=== PATIENT | male | born 1965 | race Caucasian/White ===

== ENCOUNTER 2017-04-15 09:49 | Emergency (ER) | payer OTHER ==
[~2017-04-15] VITALS: Ht 185.4 cm; Wt 100.4 kg
[2017-04-15 09:57] VITALS: TEMP 37.8; Ht 185.4 cm; Wt 100.4 kg
[2017-04-15] MEDS ORDERED: FLUT0.15 NAE (10:28)
[2017-04-15 10:52] LABS: BASO % 0.4 %; BASO ABS # 0.02 K/uL (0-0.2); COMPLETE YES; EOS % 1.3 %; HEMATOCRIT 43.9 % (42-52); IG% 0.2 %; LYMPH % 26.3 %; LYMPH ABS # 1.39 K/uL (1.2-3.4); MEAN CELL VOLUME 89.4 fL (80-100); MEAN CORPUSCULAR HEMOGLOBIN 30.3 pg (25-34); MEAN CORPUSCULAR HGB CONC 33.9 g/dl (32-36); MONO % 8.3 %; NEUT % 63.5 %; PLATELET COUNT 245 K/uL (130-400); RED BLOOD COUNT 4.91 M/uL (4.7-6.1); WHITE BLOOD COUNT 5.28 K/uL (4.8-10.8)
[2017-04-15 11:01] LABS: BLOOD UREA NITROGEN 16 mg/dl (7-18); BUN/CREATININE RATIO 15.6 (10-20); CALCIUM 8.5 mg/dl (8.5-10.1); CARBON DIOXIDE 32 mmol/L (21-32); CHLORIDE 103 mmol/L (98-107); GLUCOSE 121 mg/dl (70-99); POTASSIUM 4.2 mmol/L (3.5-5.1); SODIUM 138 mmol/L (136-145)
[2017-04-15] MEDS ORDERED: ASPIRIN 81 MG CHEW PO STA (11:03)
--- NOTE | 2017-04-15 11:05 | DIAGNOSTIC IMAGING REPORT ---
CHEST ONE VIEW PORTABLE HISTORY: Atypical Chest Pain COMPARISON: None. FINDINGS: The lungs are clear. Cardiac silhouette is normal in size. No pleural effusions. No pneumothorax. IMPRESSION: No acute process. Electronically signed by: Oleg Bates M.D. 04/15/2017 11:04 AM Dictated Date/Time: 04/15/2017 11:03 AM
[2017-04-15 11:07] LABS: CKMB/CK RATIO 0.6 (0-3.0)
[2017-04-15 11:15] VITALS: O2SAT 97
[2017-04-15 11:36] LABS: THYROID STIMULATING HORMONE 0.867 uIu/ml (0.300-4.500)
[2017-04-15 13:50] VITALS: BP 144/98; PULSE 67; O2SAT 97
--- NOTE | 2017-04-15 17:08 | EMERGENCY ROOM VISIT NOTE ---
History Report prepared by Harsha: Shaneka Whitmore Under the Supervision of: Dr. Asael Anderson D.O. First contact with patient: 10:18 Chief Complaint: CARDIAC ASSESSMENT Stated Complaint: FLUTTERING/PRESSURE IN CHEST Nursing Triage Summary: Pt reports at 0900 he was sitting at work and developed fluttering in left chest Tightness in left chest and left bicep "it feels like a popping in there sometimes" Pt reports recent sinus congestion History of Present Illness The patient is a 51 year old male who presents to the Emergency Room for a cardiac assessment. The patient was sitting at his desk at work today when he suddenly developed heart palpitations. He states, "It felt like bubbling or popping in my chest." He denies experiencing any chest pains or feeling like his heart was racing. The patient states that he developed some pressure in his chest associate with the palpitations and decided to come to the ED for further evaluation. The pressure lasted for a short time and has resolved; although, he is still experiencing intermittent palpitations. The patient has had some recent cough and cold symptoms but reports that this is due to his seasonal allergies. He denies shortness of breath, jaw pain, abdominal pain, nausea, vomiting, diarrhea, urinary symptoms, leg pain or swelling, any recent surgery, and any recent long trips. He does not have any significant cardiac history. The patient had a negative exercise stress test on 01/17/14. He denies any history of hypertension. 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 A total of 10 systems reviewed and were otherwise negative. Past Medical & Surgical Medical Problems: (1) Bladder cancer Family History FH: cancer FH: heart disease Hypertension Social History Smoking Status: Never Smoker Smokeless Tobacco Use: No Alcohol Use: occasionally Marital Status: in relationship Housing Status: lives with significant other Occupation Status: employed Current/Historical Medications Scheduled PRN Fluticasone Propionate (Nasal) (Flonase Allergy Relief), 1 SPRAYS ZAKIA DAILY PRN for ALLERGIES Allergies Coded Allergies: No Known Allergies (Unverified , 04/15/17) Physical Exam Vital Signs Date Time Temp Pulse Resp B/P Pulse Ox O2 Delivery O2 Flow Rate FiO2 04/15/17 13:50 67 18 144/98 97 04/15/17 13:38 67 18 144/98 97 Room Air 04/15/17 13:16 68 18 143/97 98 Room Air 04/15/17 13:14 67 04/15/17 11:38 66 04/15/17 11:31 71 18 159/102 97 Room Air 04/15/17 11:15 97 Room Air 04/15/17 10:10 79 04/15/17 09:57 98 Room Air 04/15/17 09:57 37.8 83 20 158/89 96 Room Air Physical Exam GENERAL: alert, sitting up in bed, well appearing, well nourished, no distress, non-toxic EYE EXAM: normal conjunctiva OROPHARYNX: no exudate, no erythema, lips, buccal mucosa, and tongue normal and mucous membranes are moist NECK: supple, no nuchal rigidity, no adenopathy, non-tender LUNGS: Clear to auscultation. Normal chest wall mechanics HEART: no murmurs, S1 normal and S2 normal ABDOMEN: abdomen soft, non-tender, normo-active bowel sounds, no masses, no rebound or guarding. BACK: Back is symmetrical on inspection and there is no deformity, no midline tenderness, no CVA tenderness. SKIN: no rashes and no bruising UPPER EXTREMITIES: upper extremities are grossly normal. Radial pulses are equal bilaterally. LOWER EXTREMITIES: No pitting edema. Calves are equal bilaterally. NEURO EXAM: Normal sensorium, cranial nerves II-XII grossly intact, normal speech, no gross weakness of arms, no gross weakness of legs. Medical Decision & Procedures ER Provider Diagnostic Interpretation: Radiology results as stated below per my review and the radiologist's interpretation: CHEST ONE VIEW PORTABLE HISTORY: Atypical Chest Pain COMPARISON: None. FINDINGS: The lungs are clear. Cardiac silhouette is normal in size. No pleural effusions. No pneumothorax. IMPRESSION: No acute process. Electronically signed by: Oleg Bates M.D. 04/15/2017 11:04 AM Dictated Date/Time: 04/15/2017 11:03 AM Laboratory Results 04/15/17 10:05 Red Blood Count 4.91, Mean Corpuscular Volume 89.4, Mean Corpuscular Hemoglobin 30.3, Mean Corpuscular Hemoglobin Concent 33.9, Mean Platelet Volume 9.0, Neutrophils (%) (Auto) 63.5, Lymphocytes (%) (Auto) 26.3, Monocytes (%) (Auto) 8.3, Eosinophils (%) (Auto) 1.3, Basophils (%) (Auto) 0.4, Neutrophils # (Auto) 3.35, Lymphocytes # (Auto) 1.39, Monocytes # (Auto) 0.44, Eosinophils # (Auto) 0.07, Basophils # (Auto) 0.02 04/15/17 10:05 Test 04/15/17 10:05 04/15/17 12:28 04/15/17 12:45 White Blood Count 5.28 K/uL (4.8-10.8) Red Blood Count 4.91 M/uL (4.7-6.1) Hemoglobin 14.9 g/dL (14.0-18.0) Hematocrit 43.9 % (42-52) Mean Corpuscular Volume 89.4 fL (80-100) Mean Corpuscular Hemoglobin 30.3 pg (25-34) Mean Corpuscular Hemoglobin Concent 33.9 g/dl (32-36) Platelet Count 245 K/uL (130-400) Mean Platelet Volume 9.0 fL (7.4-10.4) Neutrophils (%) (Auto) 63.5 % Lymphocytes (%) (Auto) 26.3 % Monocytes (%) (Auto) 8.3 % Eosinophils (%) (Auto) 1.3 % Basophils (%) (Auto) 0.4 % Neutrophils # (Auto) 3.35 K/uL (1.4-6.5) Lymphocytes # (Auto) 1.39 K/uL (1.2-3.4) Monocytes # (Auto) 0.44 K/uL (0.11-0.59) Eosinophils # (Auto) 0.07 K/uL (0-0.5) Basophils # (Auto) 0.02 K/uL (0-0.2) RDW Standard Deviation 42.4 fL (36.4-46.3) RDW Coefficient of Variation 12.9 % (11.5-14.5) Immature Granulocyte % (Auto) 0.2 % Immature Granulocyte # (Auto) 0.01 K/uL (0.00-0.02) D-Dimer < 190 ug/L FEU (0-500) Anion Gap 3.0 mmol/L (3-11) Est Creatinine Clear Calc Drug Dose 111.3 ml/min Estimated GFR () 102.0 Estimated GFR (Non- 88.0 BUN/Creatinine Ratio 15.6 (10-20) Calcium Level 8.5 mg/dl (8.5-10.1) Total Creatine Kinase 240 U/L (39-308) Thyroid Stimulating Hormone (TSH) 0.867 uIu/ml (0.300-4.500) Creatine Kinase MB Ratio (0-3.0) Creatine Kinase MB 1.9 ng/ml (0.5-3.6) Troponin I < 0.015 ng/ml (0-0.045) Laboratory results per my review. Medications Administered Medications (Trade) Dose Ordered Sig/Mira Route Start Time Stop Time Status Last Admin Dose Admin Aspirin (Aspirin Chew) 324 mg NOW STAT PO 04/15/17 11:03 04/15/17 11:04 DC 04/15/17 11:29 324 MG ECG Indication: palpitations Rate (beats per minute): 87 Rhythm: normal sinus Findings: Q waves (Septal), no ectopy, other (normal axis) Comparison ECG Date: 01/02/14 Change: no significant change ED Course ED COURSE: Vital signs were reviewed and showed hypertensive. The patients medical record was reviewed The above diagnostic studies were performed and reviewed. ED treatments and interventions as stated above. 1030: The patient was evaluated in room A10. A complete history and physical examination was performed. 1103: Aspirin 324 mg PO 1215: I reevaluated the patient at this time. He had some palpitations while I was in the room and had PVCs on the monitor. 1328: Upon reevaluation, the patient is feeling better and resting comfortably. I discussed my findings with the patient and he understands and agrees with the treatment plan. Based on the patients age, coexisting illnesses, exam and lab findings the decision to treat as an outpatient was made. The patient remained stable while under my care. The patient appeared well at the time of discharge. Medical Decision Differential diagnoses includes but is not limited to acute coronary syndrome, myocardial infarction, pericarditis, pulmonary embolus, aortic dissection, pneumonia, pneumothorax, musculoskeletal, shingles, esophageal. Patient is a 51-year-old male who presents the ER for palpitations associated with heart beating regularly. Upon review of his chart he had a stress test in 2013. No history of CAD. Denies any history of diabetes, hypertension, hyperlipidemia, sudden in his family had a young age for smoking. He also denies any PE risk factors including recent surgeries, recent trips, some swelling of his calves, hemoptysis, blood clots or smoking. CBC along with BMP and troponins were negative 2. D-dimer was negative per chest x-ray was unremarkable. EKG was unchanged from his previous in [employer] [facility]. On the monitor patient continued to have the palpitations while in the ER and was found to have PVCs which were very infrequent. This was found on 3 separate occasions. Based on this I offered the patient stress test but he declined as he notes that he has no chest pain rather came in for the palpitations. I explained the risk and benefits and is discharged to follow-up with his primary care doctor. Discussed with Pt concerning signs and symptoms to watch out for. Pt was instructed to follow up with their PCP and discussed with the patient their option to return to the ED at anytime for persistent or worsening symptoms. The appropriate anticipatory guidance and out-patient management, including indications for return to the emergency department, were explained at length to the patient and understood. Impression Primary Impression: Heart palpitations Additional Impression: Chest pressure Scribe Attestation The scribe's documentation has been prepared under my direction and personally reviewed by me in its entirety. I confirm that the note above accurately reflects all work, treatment, procedures, and medical decision making performed by me. Departure Information Dispostion Home / Self-Care Referrals No Doctor, Assigned (PCP) Justin Villafuerte, D.O. Forms IMPORTANT VISIT INFORMATION Patient Instructions ED Palpitations, [facility] Additional Instructions Please follow up with your primary care doctor with in the next 24 hours. Any worsening of your symptoms, please return to the ED immediately. This includes recurrence of your pain or palpitations, passing out, shortness of breath, or any other concerning signs or symptoms from your standpoint. Problem Qualifiers
== END 2017-04-15 13:56 | disposition home or self-care (01) ==
LOC: C.EDB 09:51 → C.EDA 13:56
DX: R00.2 Palpitations (principal); R07.9 Chest pain, unspecified; Z85.51 Personal history of malignant neoplasm of bladder; Z80.9 Family history of malignant neoplasm, unspecified; Z82.49 Family history of ischemic heart disease and other diseases of the circulatory system